=== PATIENT | female | born 1955 | race Hispanic/Latino ===

== ENCOUNTER 2018-04-24 06:13 | Day surgery (SDC) | payer BC ==
[2018-04-22 13:10] VITALS: BP 157/73
[2018-04-22 13:24] LABS: BASOPHILS % (AUTO) 0.9 % (0.0-5.0); EOSINOPHILS % (AUTO) 1.7 % (0.0-8.0); LYMPHOCYTES % (AUTO) 26.6 % (21.0-51.0); MEAN CORPUSCULAR HEMOGLOBIN 30.8 pg (27.0-33.0); MEAN CORPUSCULAR VOLUME 90.8 fL (79-99); MONOCYTES % (AUTO) 5.4 % (3.0-13.0); NEUTROPHILS % (AUTO) 65.4 % (40.0-77.0); PLATELET COUNT (AUTO) 234 K/uL (130-400); RED BLOOD CELL COUNT(AUTO) 4.29 MIL/uL (4.00-5.50); RED CELL DISTRIBUTION WIDTH 12.6 % (11.0-15.5); WHITE BLOOD COUNT (AUTO) 6.8 K/uL (4.8-10.8)
[2018-04-22 13:28] LABS: APPEARANCE,URINE Clear (CLEAR); BILIRUBIN,URINE Negative (NEGATIVE); COLOR,URINE Yellow (YELLOW); GLUCOSE, URINE (UA) Negative (NEGATIVE); KETONES,URINE Negative (NEGATIVE); LEUKOCYTE ESTERASE ,URINE Moderate (NEGATIVE); NITRATE,URINE Negative (NEGATIVE); OCCULT BLOOD,URINE Moderate (NEGATIVE); PROTEIN,URINE Negative (NEGATIVE); UROBILINOGEN,URINE 0.2 mg/dL (0.2-1.0)
[2018-04-22 13:35] LABS: ALBUMIN 3.5 g/dL (3.5-5.0); BACTERIA,URINE Rare /HPF (None Seen); BILIRUBIN,DIRECT 0.1 mg/dL (0.0-0.3); BILIRUBIN,TOTAL 0.4 mg/dL (0.2-1.0)
[2018-04-22 13:36] LABS: MUCUS,URINE Few LPF (None Seen); SQUAMOUS EPITHELIAL CELL,UR Few /HPF (0-2)
[2018-04-24] VITALS (14 sets, daily range): BP systolic 109–137; BP diastolic 61–80
[~2018-04-24] VITALS: Ht 157.5 cm; Wt 83.4 kg
[~2018-04-24 06:13] MED LIST: DICY10CA13 PO; MULTIVITAMIN PO
[2018-04-24] MEDS ORDERED: HEPARIN SODIUM 1000UNIT/ML 10ML VIAL ONE (06:55)
[2018-04-24] MEDS ORDERED: LACTATED RINGERS 1000ML 1,000 ML IV ONE (07:16)
[2018-04-24] MEDS ORDERED: GLYCOPYRROLATE 0.2 MG/ML 5 ML VIAL ONE (07:49)
[2018-04-24] MEDS ORDERED: LIDOCAINE PF 2% 5ML ABBOJECT ONE (07:49)
[2018-04-24] MEDS ORDERED: NEOSTIGMINE 5MG/5ML SYR IV ONE (07:49)
[2018-04-24] MEDS ORDERED: DEXAMETHASONE SOD PHOSPHATE 10MG/ML 1ML VIAL ONE (07:49)
[2018-04-24] MEDS ORDERED: ONDANSETRON HCL 4 MG/2 ML VIAL ONE (07:49)
[2018-04-24] MEDS ORDERED: SUCCINYLCHOLINE 200MG/10ML SYR ONE (07:49)
[2018-04-24] MEDS ORDERED: FENTANYL CITRATE PF 50 MCG/1 ML 2ML VIAL ONE ×2 (07:50→09:41)
[2018-04-24] MEDS ORDERED: MIDAZOLAM HCL 1 MG/ML 2ML VIAL ONE (07:50)
[2018-04-24] MEDS ORDERED: PROPOFOL 10 MG/ML 20ML VIAL IV ONE (07:50)
[2018-04-24] MEDS ORDERED: MEPERIDINE-PF 25 MG/ML SYG ONE (09:27)
[2018-04-24] MEDS ORDERED: KETOROLAC TROMETHAMINE 30MG/ML ONE (09:48)
== END 2018-04-24 11:08 | disposition home or self-care (01) ==
LOC: DAH 06:13
PROVIDERS: ATTEND Surgery
DX: K80.12 Calculus of gallbladder with acute and chronic cholecystitis without obstruction (principal); E66.9 Obesity, unspecified; Z68.34 Body mass index [BMI] 34.0-34.9, adult; Z83.3 Family history of diabetes mellitus; Z82.49 Family history of ischemic heart disease and other diseases of the circulatory system; Z98.890 Other specified postprocedural states
CPT/HCPCS: 36415; 47562; 80076; 81001; 85025; 88304; A4450; A4600; C1769 ×4; J0330; J1100; J1644; J1885; J2001; J2175; J2250; J2405; J2704; J2710; J3010 ×2; J3490; J7030; J7120

== ENCOUNTER 2018-08-15 15:58 | Inpatient (IN) | payer BC ==
[~2018-08-15] VITALS: Ht 157.5 cm; Wt 82.8 kg
[2018-08-15 16:26] LABS: APPEARANCE,URINE Cloudy (CLEAR); BILIRUBIN,URINE Small (NEGATIVE); COLOR,URINE Dark Yellow (YELLOW); GLUCOSE, URINE (UA) 250 mg/dL (NEGATIVE); KETONES,URINE 15 mg/dL (NEGATIVE); LEUKOCYTE ESTERASE ,URINE Negative (NEGATIVE); NITRATE,URINE Negative (NEGATIVE); OCCULT BLOOD,URINE Small (NEGATIVE); PROTEIN,URINE Trace (NEGATIVE); UROBILINOGEN,URINE 0.2 mg/dL (0.2-1.0)
[2018-08-15] MEDS ORDERED: SODIUM CHLORIDE 0.9% 1000ML 1,000 ML IV ONE (16:29)
[2018-08-15] MEDS ORDERED: ONDANSETRON HCL 4 MG/2 ML VIAL ONE (16:29)
[2018-08-15] MEDS ORDERED: MORPHINE SULFATE 4 MG/1ML SYG ONE (16:30)
[2018-08-15 16:33] LABS: BASOPHILS % (AUTO) 0.3 % (0.0-5.0); EOSINOPHILS % (AUTO) 0.4 % (0.0-8.0); HEMATOCRIT 46.9 % (36-48); LYMPHOCYTES % (AUTO) 12.2 % (21.0-51.0); MEAN CORPUSCULAR HEMOGLOBIN 30.2 pg (27.0-33.0); MEAN CORPUSCULAR HGB CONC 33.2 g/dL (32.0-36.0); MEAN CORPUSCULAR VOLUME 91.1 fL (79-99); MONOCYTES % (AUTO) 4.7 % (3.0-13.0); NEUTROPHILS % (AUTO) 82.4 % (40.0-77.0); PLATELET COUNT (AUTO) 207 K/uL (130-400); RED BLOOD CELL COUNT(AUTO) 5.15 MIL/uL (4.00-5.50); RED CELL DISTRIBUTION WIDTH 13.1 % (11.0-15.5)
[2018-08-15 16:44] LABS: CREATININE 0.7 mg/dL (0.5-1.5); POTASSIUM 3.6 mmol/L (3.5-5.1)
[2018-08-15 16:44] LABS: BACTERIA,URINE Rare /HPF (None Seen); RBC,URINE 0-1 /HPF (0-1); SQUAMOUS EPITHELIAL CELL,UR 0-2 /HPF (0-2); WBC,URINE None Seen /HPF (0-1)
[2018-08-15 16:49] LABS: ALBUMIN 3.6 g/dL (3.5-5.0); BILIRUBIN,TOTAL 2.9 mg/dL (0.2-1.0); TOTAL PROTEIN, SERUM 7.7 g/dL (6.0-8.3)
[2018-08-15] MEDS ORDERED: IOHEXOL-350 75 ML VIAL IV ONE (17:36)
[2018-08-15] MEDS ORDERED: MORPHINE SULFATE 2 MG/ML 1ML SYG ONE (18:45)
[2018-08-15 21:05] VITALS: BP 148/84
[2018-08-15] MEDS: MORPHINE SULFATE 2 MG/ML 1ML SYG IVP PRN (22:30)
[2018-08-15] MEDS: LACTATED RINGERS 1000ML 1,000 ML IV SCH (22:31)
[2018-08-16] VITALS (7 sets, daily range): BP systolic 142–161; BP diastolic 67–85
[2018-08-16] MEDS: MORPHINE SULFATE 2 MG/ML 1ML SYG IVP PRN ×4 (01:12→17:55)
[2018-08-16] MEDS ORDERED: KETOROLAC TROMETHAMINE 30MG/ML ONE (02:24)
[2018-08-16 04:30] LABS: BASOPHILS % (AUTO) 0.4 % (0.0-5.0); EOSINOPHILS % (AUTO) 0.2 % (0.0-8.0); HEMATOCRIT 43.1 % (36-48); LYMPHOCYTES % (AUTO) 6.9 % (21.0-51.0); MEAN CORPUSCULAR HEMOGLOBIN 31.3 pg (27.0-33.0); MEAN CORPUSCULAR HGB CONC 34.2 g/dL (32.0-36.0); MEAN CORPUSCULAR VOLUME 91.6 fL (79-99); MONOCYTES % (AUTO) 3.6 % (3.0-13.0); NEUTROPHILS % (AUTO) 88.9 % (40.0-77.0); NUCLEATED RED BLOOD CELLS 0.2 % (0.0-0.19); PLATELET COUNT (AUTO) 250 K/uL (130-400); RED CELL DISTRIBUTION WIDTH 13.4 % (11.0-15.5); WHITE BLOOD COUNT (AUTO) 9.5 K/uL (4.8-10.8)
[2018-08-16 05:00] LABS: ALBUMIN 3.3 g/dL (3.5-5.0); BILIRUBIN,TOTAL 0.7 mg/dL (0.2-1.0); CREATININE 0.7 mg/dL (0.5-1.5)
[2018-08-16] MEDS: PANTOPRAZOLE 40 MG/VIAL IVP SCH (08:21)
[2018-08-16] MEDS: KETOROLAC TROMETHAMINE 30MG/ML IV PRN ×2 (08:22→14:28)
[2018-08-16] MEDS: LACTATED RINGERS 1000ML 1,000 ML IV SCH ×4 (08:30→23:05)
[2018-08-16] MEDS ORDERED: HYDRALAZINE HCL 20 MG/ML VIAL IM PRN (10:15)
[2018-08-16] MEDS: ENOXAPARIN SODIUM 40 MG/0.4 ML SYRINGE SQ SCH (14:46)
[2018-08-16 18:38] LABS: ALBUMIN 2.9 g/dL (3.5-5.0); BILIRUBIN,TOTAL 0.8 mg/dL (0.2-1.0); CREATININE 0.7 mg/dL (0.5-1.5); POTASSIUM 3.8 mmol/L (3.5-5.1); TOTAL PROTEIN, SERUM 6.3 g/dL (6.0-8.3)
[2018-08-17] VITALS (23 sets, daily range): BP systolic 119–159; BP diastolic 58–86
[2018-08-17] MEDS: KETOROLAC TROMETHAMINE 30MG/ML IV PRN (02:30)
[2018-08-17] MEDS: LACTATED RINGERS 1000ML 1,000 ML IV SCH ×3 (03:54→13:11)
[2018-08-17 05:40] LABS: BASOPHILS % (AUTO) 0.1 % (0.0-5.0); HEMATOCRIT 37.4 % (36-48); LYMPHOCYTES % (AUTO) 7.4 % (21.0-51.0); MEAN CORPUSCULAR HEMOGLOBIN 30.5 pg (27.0-33.0); MEAN CORPUSCULAR HGB CONC 33.3 g/dL (32.0-36.0); MEAN CORPUSCULAR VOLUME 91.6 fL (79-99); NEUTROPHILS % (AUTO) 87.5 % (40.0-77.0); PLATELET COUNT (AUTO) 166 K/uL (130-400); RED BLOOD CELL COUNT(AUTO) 4.09 MIL/uL (4.00-5.50); RED CELL DISTRIBUTION WIDTH 13.2 % (11.0-15.5); WHITE BLOOD COUNT (AUTO) 14.8 K/uL (4.8-10.8)
[2018-08-17 05:53] LABS: ALBUMIN 2.5 g/dL (3.5-5.0); CREATININE 0.6 mg/dL (0.5-1.5); POTASSIUM 3.7 mmol/L (3.5-5.1); TOTAL PROTEIN, SERUM 5.8 g/dL (6.0-8.3)
[2018-08-17] MEDS: MORPHINE SULFATE 2 MG/ML 1ML SYG IVP PRN (07:52)
[2018-08-17] MEDS ORDERED: SUCCINYLCHOLINE 200MG/10ML SYR ONE (07:59)
[2018-08-17] MEDS ORDERED: PROPOFOL 10 MG/ML 20ML VIAL IV ONE ×2 (08:00→08:48)
[2018-08-17] MEDS ORDERED: ROCURONIUM 10MG/1ML SYR 10 MG/ML ML ONE (08:00)
[2018-08-17] MEDS ORDERED: FENTANYL CITRATE PF 50 MCG/1 ML 2ML VIAL ONE (08:00)
[2018-08-17] MEDS ORDERED: IOHEXOL-350 50ML VIAL IV ONE (08:21)
[2018-08-17] MEDS ORDERED: GLUCAGON 1MG KIT 1 MG ML ONE (08:43)
[2018-08-17] MEDS ORDERED: INDOMETHACIN 50 MG SUPP.RECT RC SCH (09:15)
[2018-08-17] MEDS: PANTOPRAZOLE 40 MG/VIAL IVP SCH (10:40)
[2018-08-17] MEDS: CEFTRIAXONE SODIUM 1 GM IVP SCH (13:10)
[2018-08-17] MEDS: ENOXAPARIN SODIUM 40 MG/0.4 ML SYRINGE SQ SCH (19:21)
[2018-08-17] MEDS: KETOROLAC TROMETHAMINE 15MG/ML IV PRN (23:27)
[2018-08-18] MEDS: LACTATED RINGERS 1000ML 1,000 ML IV SCH ×8 (00:20→22:56)
[2018-08-18 04:00] VITALS: BP 148/72
[2018-08-18 04:41] LABS: BASOPHILS % (AUTO) 0.4 % (0.0-5.0); EOSINOPHILS % (AUTO) 0.6 % (0.0-8.0); LYMPHOCYTES % (AUTO) 9.4 % (21.0-51.0); MEAN CORPUSCULAR HEMOGLOBIN 31.5 pg (27.0-33.0); MEAN CORPUSCULAR HGB CONC 34.1 g/dL (32.0-36.0); MEAN CORPUSCULAR VOLUME 92.4 fL (79-99); NEUTROPHILS % (AUTO) 82.6 % (40.0-77.0); PLATELET COUNT (AUTO) 160 K/uL (130-400); RED BLOOD CELL COUNT(AUTO) 3.79 MIL/uL (4.00-5.50); RED CELL DISTRIBUTION WIDTH 13.2 % (11.0-15.5); WHITE BLOOD COUNT (AUTO) 11.2 K/uL (4.8-10.8)
[2018-08-18 04:59] LABS: ALBUMIN 2.3 g/dL (3.5-5.0); CREATININE 0.6 mg/dL (0.5-1.5); POTASSIUM 3.4 mmol/L (3.5-5.1); TOTAL PROTEIN, SERUM 5.8 g/dL (6.0-8.3)
[2018-08-18] MEDS ORDERED: POTASSIUM CHLORIDE 20MEQ/100ML 100 ML IV PRN (05:30)
[2018-08-18] MEDS ORDERED: LIDOCAINE HCL-MPF 1% 2ML VIAL IVP PRN (05:30)
[2018-08-18] MEDS ORDERED: POTASSIUM CHLORIDE 20 MEQ ERTAB PO PRN (05:30)
[2018-08-18] MEDS: KETOROLAC TROMETHAMINE 15MG/ML IV PRN (05:48)
[2018-08-18] MEDS: MAGNESIUM 2GM PREMIX 50ML 50 ML IV PRN (06:34)
[2018-08-18 07:30] VITALS: BP 153/80
[2018-08-18] MEDS: PANTOPRAZOLE 40 MG/VIAL IVP SCH (10:16)
[2018-08-18] MEDS ORDERED: SODIUM CHLORIDE 0.9% 10 ML VIAL ONE (10:18)
[2018-08-18] MEDS: CEFTRIAXONE SODIUM 1 GM IVP SCH (10:26)
[2018-08-18 11:00] VITALS: BP 149/77
[2018-08-18 16:00] VITALS: BP 158/80
[2018-08-18] MEDS: ENOXAPARIN SODIUM 40 MG/0.4 ML SYRINGE SQ SCH (18:32)
[2018-08-18 19:26] VITALS: BP 147/64
[2018-08-18] MEDS: MORPHINE SULFATE 2 MG/ML 1ML SYG IVP PRN (22:57)
[2018-08-18 23:26] VITALS: BP 151/71
[2018-08-19] MEDS: LACTATED RINGERS 1000ML 1,000 ML IV SCH ×4 (02:45→09:36)
[2018-08-19 03:10] VITALS: BP 156/78
[2018-08-19 04:40] LABS: HEMATOCRIT 33.9 % (36-48); MEAN CORPUSCULAR HEMOGLOBIN 31.3 pg (27.0-33.0); MEAN CORPUSCULAR HGB CONC 34.2 g/dL (32.0-36.0); MEAN CORPUSCULAR VOLUME 91.7 fL (79-99); PLATELET COUNT (AUTO) 190 K/uL (130-400); WHITE BLOOD COUNT (AUTO) 9.6 K/uL (4.8-10.8)
[2018-08-19 05:00] LABS: ALBUMIN 2.4 g/dL (3.5-5.0); BILIRUBIN,TOTAL 2.7 mg/dL (0.2-1.0); CREATININE 0.5 mg/dL (0.5-1.5); MAGNESIUM 1.9 mg/dL (1.80-2.40); POTASSIUM 3.1 mmol/L (3.5-5.1); TOTAL PROTEIN, SERUM 6.2 g/dL (6.0-8.3)
[2018-08-19 05:30] LABS: CRP QUANTITATIVE 219.2 mg/L (0.00-9.0)
[2018-08-19 05:48] LABS: ERYTHROCYTE SEDIMENTATION RATE 74 MM/HR (0-30)
[2018-08-19] MEDS: MAGNESIUM 2GM PREMIX 50ML 50 ML IV PRN (06:59)
[2018-08-19 07:00] VITALS: BP 149/69
[2018-08-19] MEDS: PANTOPRAZOLE 40 MG/VIAL IVP SCH (09:34)
[2018-08-19] MEDS: ENOXAPARIN SODIUM 40 MG/0.4 ML SYRINGE SQ SCH (09:36)
[2018-08-19] MEDS ORDERED: TRAM50TA4 PO (10:26)
[2018-08-19 11:00] VITALS: BP 166/72
[2018-08-19] MEDS: POTASSIUM CHLORIDE 10% ELIXIR 20 MEQ/15 ML UDCUP PO PRN ×3 (15:54→18:32)
== END 2018-08-19 18:50 | disposition home or self-care (01) | DRG 444 ==
LOC: EDH 15:58 → OBSVTOIN 15:59 → EDHIP 15:59 → 3DH 20:27
PROVIDERS: ADMIT Hospitalist; ATTEND Hospitalist
PROC: 0FC98ZZ Extirpation of Matter from Common Bile Duct, Via Natural or Artificial Opening Endoscopic (ICD-10-PCS; principal; 2018-08-17)
PROC: 3E0234Z Introduction of Serum, Toxoid and Vaccine into Muscle, Percutaneous Approach (ICD-10-PCS; 2018-08-17)
DX: K80.70 Calculus of gallbladder and bile duct without cholecystitis without obstruction (principal); K85.10 Biliary acute pancreatitis without necrosis or infection; R65.10 Systemic inflammatory response syndrome (SIRS) of non-infectious origin without acute organ dysfunction; I31.9 Disease of pericardium, unspecified; B17.9 Acute viral hepatitis, unspecified; K21.9 Gastro-esophageal reflux disease without esophagitis; E86.1 Hypovolemia; E66.9 Obesity, unspecified; K86.89 Other specified diseases of pancreas; Z68.33 Body mass index [BMI] 33.0-33.9, adult; Z90.49 Acquired absence of other specified parts of digestive tract; Z23 Encounter for immunization; Z83.3 Family history of diabetes mellitus; Z82.5 Family history of asthma and other chronic lower respiratory diseases; Z82.49 Family history of ischemic heart disease and other diseases of the circulatory system; Z82.3 Family history of stroke; Z82.0 Family history of epilepsy and other diseases of the nervous system
CPT/HCPCS: 36415; 74177; 74330; 76705; 80053; 80061; 81001; 82150; 82270; 83690; 83735; 85025; 85027; 85651; 86140; C1769; C1773; C9113; G0008; J0330; J0696; J1610; J1650; J1885; J2270; J2405; J2704; J3010; J3475; J7030; J7120; Q2038; Q9967